=== PATIENT | female | born 1990 | race Caucasian/White ===

== ENCOUNTER 2019-05-26 01:54 | Emergency (ER) | payer BC ==
[~2019-05-26] VITALS: Ht 167.6 cm; Wt 90.7 kg
== END 2019-05-26 03:05 | disposition home or self-care (01) ==
LOC: ED 01:54
DX: R05 Cough (principal)
CPT/HCPCS: 99283

== ENCOUNTER 2019-08-22 04:13 | Emergency (ER) | payer OTHER ==
[~2019-08-22] VITALS: Ht 172.7 cm; Wt 97.5 kg
--- OUTSIDE RECORDS SUMMARY | ~2019-08-22 | XMS | Clinical Summary ---
Demographics + + + | Address | [address] | | | [place] [address] | + + + | Home Phone | | + + + | Preferred Language | Unknown | + + + | Marital Status | Single | + + + | Advent Affiliation | Unknown | + + + | Race | Unknown | + + + | Ethnic Group | Unknown | + + + Author + + + | Author | [facility] | | | and [place] | + + + | Organization | [facility] | | | and [place] | + + + | Address | Unknown | + + + | Phone | Unavailable | + + + Support + + +---------+ + | Name | Relationship | Address | Phone | + + +---------+ + | Oswaldo Campbell | ECON | Unknown | | + + +---------+ + Care Team Providers + +------+ + | Care Dip Unit Operator Name | Role | Phone | + +------+ + | No, Physician | PCP | Unavailable | + +------+ + Allergies Not on File Medications Not on file Active Problems Not on file Social History + +-------+ +--------+------+ | Tobacco Use | Types | Packs/Day | Years | Date | | | | | Used | | + +-------+ +--------+------+ | Never Assessed | | | | | + +-------+ +--------+------+ + + + | Sex Assigned at | Date Recorded | | | | + + + | Not on file | | + + + + + + + | Job Start Date | Occupation | Industry | + + + + | Not on file | Not on file | Not on file | + + + + + + + + | Travel History | Travel Start | Travel End | + + + + + + | No recent travel history available. | + + Last Filed Vital Signs Not on file Plan of Treatment + + + + + | Health Maintenance | Due Date | Last Done | Comments | + + + + + | Vaccine: | | | | | Dtap/Tdap/Td (1 - | 9 | | | | Tdap) | | | | + + + + + | Cervical Cancer | | | | | Screening (Pap) | 1 | | | + + + + + | Vaccine: Influenza | | | | | (#1) | 9 | | | + + + + + Results Not on filefrom Last 3 Months Insurance +-------+--------+ +--------+ + +------+ | Payer | Benefi | Subscriber | Effect | Phone | Address | Type | | | t Plan | ID | denice | | | | | | / | | Dates | | | | | | Group | | | | | | +-------+--------+ +--------+ + +------+ | MODA | MODA | [id number] | 09/11/19 | [phone] | [address] | PPO | | | [place] | | 18-Pre | 9 | [phone] | | | | [place] | | sent | | [place], | | | | [place] | | | | [place] [address] | | | | STONE | | | | | | | | EPO | | | | | | +-------+--------+ +--------+ + +------+ + +--------+ +--------+ + + | Guarantor Name | Accoun | Relation to | Date | Phone | Billing Address | | | t Type | Patient | of | | | | | | | | | | + +--------+ +--------+ + + | Aury Silver | Person | Self | [birth year] | [address] [place] | | | al/Fam | | 1989 | [phone] | [place] [address] | | | maylin | | | 4 (Home) | | + +--------+ +--------+ + + Advance Directives + + + + + | Type | Date Recorded | Patient | Explanation | | | | Electric Melt Operator | | + + + + + | Power of | | | | | Assembler Small Products | | | | + + + + + | Advance | 11/27/2017 5:07 | | | | Directive | PM | | | + + + + +"
--- OUTSIDE RECORDS SUMMARY | ~2019-08-22 | XMS | Clinical Summary ---
Demographics + + + | Address | [address] | | | [place] [address] | + + + | Home Phone | | + + + | Preferred Language | Unknown | + + + | Marital Status | Single | + + + | Uatsdin Affiliation | Unknown | + + + | Race | Unknown | + + + | Ethnic Group | Unknown | + + + Author + + + | Author | [facility] | | | and [place] | + + + | Organization | [facility] | | | and [place] | [...] Team Providers + +------+ + | Care Senior Budget Analyst Name | Role | Phone | + [...] + +------+ | MODA | MODA | [id number] | 09/[birth year] | [phone] | [address] | PPO | | | [place] | | 18-Pre | 9 | [id number] | | | | [place] | | sent | | [place], | | | | [place] | | | | [place] [address] | | | | STONE | | [...] | | al/Fam | | 1989 | [phone] | [place] [address] | | | maylin | | | 4 (Home) | | + +--------+ +--------+ + + Advance Directives + + + + + | Type | Date Recorded | Patient | Explanation | | | | [address] Bailiff | | + + + + + | Power of | | | | | Barrel Reamer | | | | + + + + + | Advance | 11/27/2017 5:07 | | | | Directive | PM | | | + + + + +"
--- OUTSIDE RECORDS SUMMARY | ~2019-08-22 | XMS | Encounter Summary ---
Demographics + + + | Address | [address] | | | [place] [address] | + + + | Home Phone | | + + + | Preferred Language | Unknown | + + + | Marital Status | Single | + + + | Anabaptism Affiliation | Unknown | + + + | Race | Unknown | + + + | Ethnic Group | Unknown | + + + Author + + + | Author | [facility] | | | and [place] | + + + | Organization | [facility] | | | and [place] [...] Team Providers + +------+ + | Care Treating Plant Pumper Name | Role | Phone | + +------+ + | No, Physician | PCP | Unavailable | + +------+ + Encounter Details +--------+ + + + + | Date | Type | Department | Care Team | Description | +--------+ + + + + | 11/27/ | Hospital | [place] [facility] | Debby Rhoades | Low back pain, | | 2018 | Encounter | [facility] [address] | unspecified back | | | | [address] [place] | [place] | pain laterality, | | | | [place], [place] | [place] [address] | unspecified | | | | [phone] | [phone] | chronicity, with | | | | [phone] | | sciatica presence | | | | | | unspecified | +--------+ + + + + Social History + +-------+ +--------+------+ | Tobacco [...] recent travel history available. | + + documented as of this encounter Plan of Treatment Not on filedocumented as of this encounter Procedures + +--------+ + + + | Procedure Name | Priori | Date/Time | Associated Diagnosis | Comments | | | ty | | | | + +--------+ + + + | XR LUMBAR SPINE 4 + | Routin | 11/27/2017 | Low back pain, | Results for this | | VW | e | 5:24 PM | unspecified back | procedure are in the | | | | PDT | pain laterality, | results section. | | | | | unspecified | | | | | | chronicity, with | | | | | | sciatica presence | | | | | | unspecified | | + +--------+ + + + documented in this encounter Results XR Lumbar Spine 4 + Vw (11/27/2017 5:24 PM PDT) + + | Specimen | + + | | + + + + + | Impressions | Performed At | + + + | IMPRESSION: No evidence of acute radiographic abnormality. If | [facility] | | symptoms persist consider MRI evaluation. Dictated by: Bashir Humphrey | | Katey | | | 5:26 PM | | + + + + +- + | Narrative | Performed At | + +- + | EXAMINATION:XR | [facility] | | LUMBAR SPINE 4 + VW HISTORY:Low back pain, unspecified back pain | | | laterality, unspecified chronicity, with sciatica presence unspecified | | | COMPARISON STUDY:None FINDINGS: The alignment of the lumbar spine is | | | normal.No fracture or focal bone lesion is present.The disc spaces | | | show normal height, with no evidence of significant degenerative | | | change.The facet joints appear normal.No soft tissue abnormality is | | | visible. | | | | | |FINDINGS: | | | | | |The alignment of the lumbar spine is normal. | | |No fracture or focal bone lesion is present. | | |The disc spaces show normal height, with no evidence of significant degenerative change. | | |The facet joints appear normal. | | |No soft tissue abnormality is visible. | | | | | + +- + + -+ | Procedure Note | + -+ | Edson, Rad Results In - 11/27/2017 5:29 PM PDT EXAMINATION:XR LUMBAR SPINE 4 + | | VWHISTORY:Low back pain, unspecified back pain laterality, unspecified chronicity, with | | sciatica presence unspecifiedCOMPARISON STUDY:NoneFINDINGS:The alignment of the lumbar | | spine is normal.No fracture or focal bone lesion is present.The disc spaces show normal | | height, with no evidence of significant degenerative change.The facet joints appear | | normal.No soft tissue abnormality is visible.IMPRESSION: IMPRESSION:No evidence of acute | | radiographic abnormality. If symptoms persist consider MRI evaluation.Dictated by: | | Bashir Norwoodectronically Signed by: Bashir Del Toro on 11/27/2017 5:26 PM | | | |FINDINGS: | | | |The alignment of the lumbar spine is normal. | |No fracture or focal bone lesion is present. | |The disc spaces show normal height, with no evidence of significant degenerative change. | |The facet joints appear normal. | |No soft tissue abnormality is visible. | | | |IMPRESSION: | |IMPRESSION: | |No evidence of acute radiographic abnormality. If symptoms persist consider MRI evaluation. | | | |Dictated by: Bashir Del Toro | | | | | + -+ + +---------+ + + | Performing | Address | City/State/Zipcode | Phone Number | | Organization | | | | + +---------+ + + | [facility] | | | | + +---------+ + + documented in this encounter Visit Diagnoses + + | Diagnosis | + + | Low back pain, unspecified back pain laterality, unspecified chronicity, with sciatica | | presence unspecified | + + documented in this encounter"
--- OUTSIDE RECORDS SUMMARY | ~2019-08-22 | XMS | Encounter Summary ---
Demographics + + + | Address | [address] | | | [place] [address] | + + + | Home Phone | | + + + | Preferred Language | Unknown | + + + | Marital Status | Single | + + + | Church Affiliation | Unknown | + + + | Race | Unknown | + + + | Ethnic Group | Unknown | + + + Author + + + | Author | [facility] | | | and [place] | + + + | Organization | [facility] | | | and [...] Team Providers + +------+ + | Care School Crossing Guard Supervisor Name | Role | Phone | + [...] | | [place], [place] | [place] [address] | unspecified | | | | [address] | [phone] | chronicity, with | | | | [phone] | | sciatica presence | | | [...]
--- NOTE | 2019-08-22 06:40 | EKG ---
[facility] [address] [place] [address] Signed Normal sinus rhythm Possible Acute pericarditis Prolonged QT Abnormal ECG No previous ECGs available Confirmed by BROOKLYN MEYER MD ([id number]) on 08/22/2019 6:39:51 AM Electronically Signed By: BROOKLYN MEYER MD 08/22/19 0640 PATIENT NAME: CLAUDINE ANTONIO Electrocardiogram DATE OF : 89 PHYSICIAN: BROOKLYN MEYER MD REPORT #: [id number] REPORT IS CONFIDENTIAL AND NOT TO BE RELEASED WITHOUT AUTHORIZATION
== END 2019-08-22 09:04 | disposition home or self-care (01) ==
LOC: ED 04:13
DX: K52.9 Noninfective gastroenteritis and colitis, unspecified (principal); R55 Syncope and collapse
CPT/HCPCS: 80053; 81001; 83735; 84443; 84703; 85025; 87502; 93005; 93010; 96361; 96374; 99284-25; J2405; J7030